=== PATIENT | female | born 1990 | race Hispanic/Latino ===

== ENCOUNTER 2022-06-03 15:53 | Outpatient (CLI) | payer OTHER | END 2022-06-03 15:54 | disposition home or self-care (01) | LOC: CSHULT 15:53 | PROVIDERS: ATTEND Family Medicine | DX: O44.43 Low lying placenta NOS or without hemorrhage, third trimester (principal) | CPT/HCPCS: 76815 ==

== ENCOUNTER 2022-08-05 05:30 | Inpatient (IN) | payer OTHER ==
[2022-08-05] MEDS ORDERED: Promethazine HCl 25 MG/ML VIAL IM PRN ×3 (06:07→10:51)
[2022-08-05] MEDS ORDERED: Famotidine/PF 20 mg/2ml Vial SLOW IVP PRN (06:07)
[2022-08-05] MEDS ORDERED: Lactated Ringer's 1,000 ML IV SCH (06:07)
[2022-08-05] MEDS ORDERED: CEFAZOLIN 2 GM in Sodium Chloride 0.9% 100 ML IVPB SCH (06:07)
[2022-08-05] MEDS ORDERED: Bicitra 30 ML UDCUP PO PRN (06:07)
[2022-08-05] MEDS ORDERED: hydrALAZINE 20 MG/ML VIAL SLOW IVP PRN ×2 (06:07→10:51)
[2022-08-05] MEDS ORDERED: Ondansetron PF 4 MG/2 ML Vial IVP PRN ×3 (06:07→10:51)
[2022-08-05 06:08] VITALS: BMI 36.3
[2022-08-05 06:32] LABS: Mean Corpuscular HGB CONC 35.3 g/dL (32.0-36.0); Mean Corpuscular Hemoglobin 29.9 pg (27.0-33.0); Mean Corpuscular Volume 84.6 fl (81.6-98.3); Mean Platelet Volume 10.9 fl (7.4-10.4); Platelet Count 270 10x3/uL (150-450); RBC Distribution Width 14.5 % (11.5-14.5); Red Blood Cell (RBC) Count 4.02 10x6/uL (3.90-5.03); White Blood Cell (WBC) Count 8.2 10x3/uL (3.5-10.5)
[2022-08-05] MEDS ORDERED: Phenylephrine 40 MG/NS 250 ML 250 ML ONE (06:54)
[2022-08-05] MEDS ORDERED: ePHEDrine Sulfate 50 MG/10 ML VIAL ONE (06:54)
[2022-08-05] MEDS ORDERED: Morphine PF 10 MG/10 ML VIAL ONE (06:54)
[2022-08-05] MEDS ORDERED: Oxytocin 10 UNITS/ML VIAL ONE (06:54)
[2022-08-05] MEDS ORDERED: Ketorolac Tromethamine 30 MG/ML VIAL ONE (06:54)
[2022-08-05] MEDS ORDERED: Ondansetron PF 4 MG/2 ML Vial ONE (06:54)
[2022-08-05] MEDS ORDERED: PHENYLEPHRINE-NS 100 MCG/ML 10 ML SYRINGE ONE (06:54)
[2022-08-05 07:13] LABS: HBSAg Index 0.17 S/CO (0-0.99); Hep B Surf Ag Non-Reactive S/CO (NonReactive)
[2022-08-05 07:14] LABS: Syphilis Antibody Nonreactive (Nonreactive); Syphilis Antibody Index 0.07 S/CO (<1.00 Non-Reactive)
[2022-08-05 07:29] LABS: SARS-CoV-2 NAA Rapid Test Not Detected (NotDetected)
[2022-08-05] MEDS ORDERED: Fentanyl 100 MCG/2 ML VIAL ONE (08:10)
[2022-08-05] MEDS ORDERED: Meperidine HCl/PF 25 MG/ML VIAL SLOW IVP PRN (08:40)
[2022-08-05] MEDS ORDERED: Fentanyl 100 MCG/2 ML VIAL SLOW IVP PRN (08:40)
[2022-08-05] MEDS ORDERED: Promethazine HCl 25 MG SUPP PR PRN (08:40)
[2022-08-05] MEDS ORDERED: Naloxone HCl 0.4 mg/ml Vial IV PRN (08:40)
[2022-08-05] MEDS ORDERED: diphenhydrAMINE 50 MG/ML VIAL IVP PRN (08:40)
[2022-08-05] MEDS ORDERED: Naloxone HCl 0.4 mg/ml Vial IVP PRN ×2 (08:40)
[2022-08-05] MEDS ORDERED: Moisturizing Cream (Eucerin) 113 GM JAR TOP PRN (08:40)
[2022-08-05] MEDS ORDERED: Ondansetron HCl/PF 4 MG/2 ML Vial IVP PRN (08:40)
[2022-08-05] MEDS ORDERED: Communication Order-Pharmacy FS SCH (08:45)
[2022-08-05] MEDS ORDERED: Lanolin Ointment 7 GM TUBE TOP PRN (10:51)
[2022-08-05] MEDS ORDERED: Simethicone Chewable 80 MG TAB PO PRN (10:51)
[2022-08-05] MEDS ORDERED: HYDROcodone/Acetaminophen 5/325 mg Tablet PO PRN (10:51)
[2022-08-05] MEDS ORDERED: diphenhydrAMINE 25 MG CAP PO PRN (10:51)
[2022-08-05] MEDS ORDERED: Boostrix 0.5 ML (Tdap) VIAL (>/=7 yrs of age) IM ONE (10:51)
[2022-08-05] MEDS ORDERED: Meperidine HCl/PF 25 MG/ML VIAL IM PRN (10:51)
[2022-08-05] MEDS ORDERED: Bisacodyl 10 MG SUPP PR PRN (10:51)
[2022-08-05] MEDS ORDERED: Ferrous Sulfate 325 MG TAB PO SCH (11:00)
[2022-08-05] MEDS ORDERED: Docusate 100 MG CAP PO SCH (11:00)
[2022-08-05] MEDS ORDERED: Prenatal Vitamin 1 TAB PO SCH (11:00)
[2022-08-05] MEDS ORDERED: Ketorolac Tromethamine 30 MG/ML VIAL IVP SCH ×2 (11:00→14:30)
[2022-08-05] MEDS: Ketorolac Tromethamine 30 MG/ML VIAL IVP SCH (14:49)
[2022-08-05] MEDS ORDERED: Ketorolac Tromethamine 30 MG/ML VIAL IVP PRN (16:35)
[2022-08-05] MEDS: Ferrous Sulfate 325 MG TAB PO SCH (21:03)
[2022-08-06] MEDS: Ketorolac Tromethamine 30 MG/ML VIAL IVP SCH ×2 (00:53→06:03)
[2022-08-06] MEDS: Docusate 100 MG CAP PO SCH ×3 (00:53→21:47)
[2022-08-06 05:25] LABS: Hemoglobin 10.9 g/dL (12.0-15.5); Mean Corpuscular HGB CONC 33.6 g/dL (32.0-36.0); Mean Corpuscular Hemoglobin 28.8 pg (27.0-33.0); Mean Corpuscular Volume 85.5 fl (81.6-98.3); Mean Platelet Volume 10.5 fl (7.4-10.4); Platelet Count 267 10x3/uL (150-450); RBC Distribution Width 14.6 % (11.5-14.5); Red Blood Cell (RBC) Count 3.79 10x6/uL (3.90-5.03); White Blood Cell (WBC) Count 9.8 10x3/uL (3.5-10.5)
[2022-08-06] MEDS ORDERED: Ibuprofen 800 MG TAB PO SCH (06:00)
[2022-08-06] MEDS: Ferrous Sulfate 325 MG TAB PO SCH ×2 (07:58→19:14)
[2022-08-06] MEDS ORDERED: Ketorolac Tromethamine 30 MG/ML VIAL IVP SCH (08:00)
[2022-08-06] MEDS: Prenatal Vitamin 1 TAB PO SCH (08:04)
[2022-08-06] MEDS: Ibuprofen 800 MG TAB PO SCH ×2 (14:33→21:47)
[2022-08-06] MEDS: HYDROcodone/Acetaminophen 5/325 mg Tablet PO PRN (21:50)
[2022-08-07] MEDS: Ibuprofen 800 MG TAB PO SCH ×3 (05:14→21:37)
[2022-08-07] MEDS: Ferrous Sulfate 325 MG TAB PO SCH ×2 (07:32→21:36)
[2022-08-07] MEDS: Prenatal Vitamin 1 TAB PO SCH (07:55)
[2022-08-07] MEDS: Docusate 100 MG CAP PO SCH ×2 (07:55→21:37)
[2022-08-07] MEDS: HYDROcodone/Acetaminophen 5/325 mg Tablet PO PRN ×3 (07:55→17:18)
[2022-08-08] MEDS: Ibuprofen 800 MG TAB PO SCH (05:01)
[2022-08-08] MEDS: Ferrous Sulfate 325 MG TAB PO SCH (07:38)
[2022-08-08 07:56] VITALS: BP 106/67; TEMP 97.7
[2022-08-08] MEDS: Docusate 100 MG CAP PO SCH (08:02)
[2022-08-08] MEDS: Prenatal Vitamin 1 TAB PO SCH (08:03)
== END 2022-08-08 10:24 | disposition home or self-care (01) | DRG 788 ==
LOC: CSHLD 05:30 → CSHPP 10:51
PROVIDERS: ADMIT Family Medicine; ATTEND Family Medicine
PROC: 10D00Z1 Extraction of Products of Conception, Low, Open Approach (ICD-10-PCS; principal; 2022-08-05)
DX: O34.211 Maternal care for low transverse scar from previous cesarean delivery (principal); Z3A.39 39 weeks gestation of pregnancy; Z20.822 Contact with and (suspected) exposure to COVID-19; Z37.0 Single live birth; O69.81X0 Labor and delivery complicated by cord around neck, without compression, not applicable or unspecified
CPT/HCPCS: 36415; 51702; 85027; 86780; 86850; 86900; 86901; 87340; J1885; J2274; J2405; J2590; J3010; J3490; S0028; U0002